=== PATIENT | male | born 1960 | race Two or more races ===

== ENCOUNTER 2019-04-17 10:34 | Emergency (ER) | payer MEDICAID ==
[~2019-04-17] VITALS: Ht 170.2 cm; Wt 68.9 kg
--- NOTE | 2019-04-17 10:41 | NUR ---
PT BIBRA 89 FROM WORK, C/O SEIZURE, +ETOH, PT IS AAOX1, NOT IN RESPIRATORY DISTRESS, HOOKED TO MONITOR, KEPT RESTED AND COMFORTABLE, WILL CONTINUE TO MONITOR.
[2019-04-17] MEDS ORDERED: LORAZEPAM INJ 2 MG/ML VIAL ONE ×2 (10:42→15:12)
--- NOTE | 2019-04-17 10:44 | NUR ---
SEEN AND EXAMINED BY
--- NOTE | 2019-04-17 10:57 | NUR ---
IV LINE ESTABLISHED, BLOOD DRAWN AND SENT TO LAB.
[2019-04-17] MEDS ORDERED: LORAZEPAM INJ 2 MG/ML VIAL IVP ONE (11:00)
[2019-04-17] MEDS ORDERED: IV NS 0.9% 1,000 ML BAG IV ONE (11:00)
[2019-04-17 11:02] LABS: BASOPHILS % (AUTO) 0.5 % (0.0-2.0); EOSINOPHILS % (AUTO) 0.1 % (0.0-6.0); HEMATOCRIT 42 % (39-51); HEMOGLOBIN 13.5 g/dL (13.5-17.5); LYMPHOCYTES # (AUTO) 2.2 /CMM (0.8-4.8); LYMPHOCYTES % (AUTO) 25.1 % (20.0-44.0); MEAN CORPUSCULAR HGB CONC 32 g/dl (31.0-36.0); MEAN CORPUSCULAR VOLUME 96 fL (80-96); MONOCYTES # (AUTO) 0.8 /CMM (0.1-1.30); MONOCYTES % (AUTO) 9.6 % (2.0-12.0); NEUTROPHILS # (AUTO) 5.7 /CMM (1.8-8.9); NEUTROPHILS % (AUTO) 64.7 % (43.0-81.0); PLATELET COUNT (AUTO) 212 /CMM (150-450); RED BLOOD CELL COUNT(AUTO) 4.34 MIL/uL (4.5-6.0); WHITE BLOOD COUNT (AUTO) 8.8 K/uL (4.3-11.0)
--- NOTE | 2019-04-17 11:20 | NUR ---
PT IS BACK FROM THE CT SCAN.
[2019-04-17 11:37] LABS: CALCIUM, SERUM 8.6 mg/dL (8.5-10.1); POTASSIUM 3.1 mmol/L (3.5-5.1)
[2019-04-17] MEDS ORDERED: IOHEXOL-350 100 ML VIAL IV ONE (12:39)
[2019-04-17] MEDS ORDERED: CT SWABBABLE VALVE TRANS SET 1 EA INFUS.SET MC ONE (12:39)
--- NOTE | 2019-04-17 14:00 | NUR ---
CALLED [facility] [phone] [facility].
[2019-04-17] MEDS ORDERED: LEVETIRACETAM (500MG) 500 MG in IV NS 0.9% 100 ML IV SCH (14:30)
--- NOTE | 2019-04-17 14:51 | NUR ---
SPOKE WITH [facility] [phone] FAXED FACE SHEET AND LAINA TO [phone]
--- NOTE | 2019-04-17 15:02 | NUR ---
[facility] TRANSFER CALLED. [facility] WILL DOUPER PT IN 45 MINUTES. WILL CALL BACK WITH BED ASSIGNMENT AND NUMBER FOR REPORT.
--- NOTE | 2019-04-17 15:27 | NUR ---
[facility]ED [facility] FOR [facility] BEEN ON HOLD FOR 15 MINS NO ANSWER.
[2019-04-17] MEDS ORDERED: LORAZEPAM INJ 2 MG/ML VIAL IV ONE (15:30)
--- NOTE | 2019-04-17 15:39 | NUR ---
GOT BED [id number] CALL FOR REPORT TO [phone] [facility] 1 EXTENSION [phone]
--- NOTE | 2019-04-17 15:57 | NUR ---
CALLED AGAIN JESÚS AUGUST FOR REPORT SPOKED TO MATIAS, SAID CHARGE NURSE NOT AVAILABLE WILL CALL BACK.
--- NOTE | 2019-04-17 16:02 | NUR ---
REPORT GIVEN TO MIGUEL HERNANDEZ FOR ADOLFO.
[2019-04-17 16:13] VITALS: BP 131/89
== END 2019-04-17 16:15 | disposition short-term general hospital (02) ==
LOC: ER 10:37 → EDBD 10:37 → ER 16:15
DX: G40.909 Epilepsy, unspecified, not intractable, without status epilepticus (principal); Q28.2 Arteriovenous malformation of cerebral vessels; F10.20 Alcohol dependence, uncomplicated; Y90.3 Blood alcohol level of 60-79 mg/100 ml
CPT/HCPCS: 36415; 70450; 70496; 80048; 80307; 85025; 93005; 96365; 96375; 96376; 99285; J1953; J2060 ×2; J7030 ×2; Q9967; G0480